=== PATIENT | female | born 1975 | race Caucasian/White ===

== ENCOUNTER 2023-12-24 11:17 | Emergency (ER) | payer OTHER ==
[~2023-12-24 11:17] MED LIST: AUGMENTIN 875875 MG PO; DEBROX15 ML OT; MOTRIN800 MG PO; NKHM; OMNICEF300 MG PO; ZYRTEC10 MG PO
[2023-12-24] MEDS ORDERED: PREDNISONE50 MG PO (12:28)
[2023-12-24] MEDS ORDERED: AMOX-CLAV 875-1 EACH PO (12:28)
== END 2023-12-24 12:30 | disposition home or self-care (01) ==
LOC: ED 11:17
DX: H66.92 Otitis media, unspecified, left ear (principal); Z98.890 Other specified postprocedural states